=== PATIENT | female | born 1960 | race Caucasian/White ===

== ENCOUNTER → 2016-12-30 | Outpatient (CLI) | payer MEDICAID | LOC: CIMAGING 13:22 | PROVIDERS: ATTEND Internal Medicine Hematology & Oncology | DX: N63.21 Unspecified lump in the left breast, upper outer quadrant (principal) | CPT/HCPCS: 76641-PO; G0204 ==

== ENCOUNTER 2017-01-21 11:27 | Emergency (ER) | payer MEDICAID ==
[2017-01-21 11:41] VITALS: TEMP 97.9
[2017-01-21] MEDS ORDERED: ASPIRIN 81 MG CHEWABLE TAB PO ONE (11:51)
[2017-01-21] MEDS ORDERED: NS 500 ML IV ONE (11:51)
--- NOTE | 2017-01-21 11:51 | CPEKG ---
Heart Rate: 78 RR Interval: 769 P-R Interval: 140 QRSD Interval: 80 QT Interval: 388 QTC Interval: 442 P [place]: 46 QRS [place]: 51 T Wave [place]: 48 EKG Severity - NORMAL ECG - EKG Impression: SINUS RHYTHM Electronically Signed By: Johnny Vo 21-Jan-2017 11:54:36
--- NOTE | 2017-01-21 11:54 | EDPHY ---
H & P Stated Complaint: L arm/jaw pain, SOB on and off 1 week, sent by primary care Time Seen by Provider: 01/21/17 11:45 HPI/ROS: CHIEF COMPLAINT: Left jaw pain HISTORY OF PRESENT ILLNESS: Patient is a 56-year-old female with a history of asthma and remote history of appendiceal cancer who comes to the emergency department complaining of left-sided jaw neck and arm pain for the last week. No change in her shortness of breath. No fevers. No chest pain. No diaphoresis. Mild nausea and vomiting unchanged from baseline. She saw her primary care doctor today who recommended she come to the ER. No lightheadedness or dizziness. No history of cardiac disease. She does state that she has bad anxiety and so it is hard for her to tell what symptoms are real and which ones are her anxiety. REVIEW OF SYSTEMS: Constitutional: denies: chills, fever, recent illness, recent injury EENTM: denies: blurred vision, double vision, nose congestion Respiratory: denies: cough, shortness of breath Cardiac: See HPI denies: chest pain, irregular heart rate, lightheadedness, palpitations Gastrointestinal/Abdominal: denies: abdominal pain, diarrhea, nausea, vomiting, blood streaked stools Genitourinary: denies: dysuria, frequency, hematuria, pain Musculoskeletal: denies: joint pain, muscle pain Skin: denies: lesions, rash, jaundice, bruising Neurological: denies: headache, numbness, paresthesia, tingling, dizziness, weakness Hematologic/Lymphatic: denies: blood clots, easy bleeding, easy bruising Immunologic/allergic: denies: HIV/AIDS, transplant EXAM: GENERAL: Well-appearing, overweight and in no acute distress. HEAD: Atraumatic, normocephalic. EYES: Pupils equal round and reactive to light, extraocular movements intact, sclera anicteric, conjunctiva are normal. ENT: TMs normal, nares patent, oropharynx clear without exudates. Moist mucous membranes. NECK: Normal range of motion, supple without lymphadenopathy or JVD. LUNGS: Breath sounds clear to auscultation bilaterally and equal. No wheezes rales or rhonchi. HEART: Regular rate and rhythm without murmurs, rubs or gallops. ABDOMEN: Soft, nontender, normoactive bowel sounds. No guarding, no rebound. No masses appreciated. BACK: No CVA tenderness, no spinal tenderness, step-offs or deformities EXTREMITIES: Normal range of motion, no pitting or edema. No clubbing or cyanosis. NEUROLOGICAL: Cranial nerves II through XII grossly intact. Normal speech, normal gait. 5/5 strength, normal movement in all extremities, normal sensation PSYCH: Normal mood, normal affect. SKIN: Warm, dry, normal turgor, no visible rashes or lesions. Source: Patient Exam Limitations: No limitations - Personal History Current Tetanus/Diphtheria Vaccine: Unsure Current Tetanus Diphtheria and Acellular Pertussis (TDAP): Unsure Tetanus Vaccine Date: unknown - Medical/Surgical History Hx Asthma: Yes Hx Chronic Respiratory Disease: No Hx Diabetes: No Hx Cardiac Disease: No Hx Renal Disease: No Hx Cirrhosis: No Hx Alcoholism: No Hx HIV/AIDS: No Hx Splenectomy or Spleen Trauma: No Other PMH: 2 c sections hysterectomy asthma, appendiceal cancer, hemicolectomy - Family History Significant Family History: No pertinent family hx - Social History Smoking Status: Never smoked Alcohol Use: Sober Drug Use: None Constitutional: Initial Vital Signs Temperature (C) 36.6 C 01/21/17 11:37 Heart Rate 92 01/21/17 11:37 Respiratory Rate 18 01/21/17 11:37 Blood Pressure 102/80 01/21/17 11:37 O2 Sat (%) 97 01/21/17 11:37 O2 Delivery Mode Room Air O2 (L/minute) 2 Allergies/Adverse Reactions: Penicillins Allergy (Severe, Verified 01/21/17 11:36) Other-Enter Comments adhesive Allergy (Mild, Verified 01/21/17 11:36) Rash latex Allergy (Mild, Verified 01/21/17 11:36) Rash MANGOS Allergy (Uncoded 05/20/14 21:08) Home Medications: Medication Instructions Recorded Advair 500/50 (*) 01/21/17 Albuterol 01/21/17 Claritin 01/21/17 Hydrocodon-Acetaminophen 5-325 01/21/17 Ranitidine HCl 01/21/17 Singulair 01/21/17 Medical Decision Making - Diagnostics EKG Interpretation: An EKG obtained and was read and documented in trace view. Please see trace view for full reading and report. Sinus rhythm, no acute ischemic changes Imaging Results: Imaging Impressions Chest X-Ray 01/21/17 11:52 Impression: Normal chest x-ray. ED Course/Re-evaluation: 1:00 p.m. we discussed the test results which are reassuring. The patient is currently asymptomatic. She would like to go home. We discussed limitations as well as the differential. We discussed follow-up. Discussed indications for returning. Differential Diagnosis: Partial list of the Differential diagnosis considered include but were not limited to; anxiety, acute coronary disease, PE, asthma and although unlikely based on the history and physical exam, I also considered bronchitis, pneumonia , pneumothorax. I discussed these differential diagnoses and the plan with the patient as well as the usual and expected course. The patient understands that the diagnosis is provisional and that in medicine we are not always correct and that further workup is often warranted. Usual and customary warnings were given. All of the patient's questions were answered. The patient was instructed to return to the emergency department should the symptoms at all worsen or return, otherwise to followup with the physician as we discussed. - Data Points Laboratory Results: Laboratory Results 01/21/17 11:52 01/21/17 11:52 01/21/17 01/21/17 01/21/17 Unknown 11:52 11:52 WBC RBC Hgb Hct MCV MCH MCHC RDW Plt Count MPV Neut % (Auto) Lymph % (Auto) Gage % (Auto) Eos % (Auto) Baso % (Auto) Nucleat RBC Rel Count Absolute Neuts (auto) Absolute Lymphs (auto) Absolute Monos (auto) Absolute Eos (auto) Absolute Basos (auto) Absolute Nucleated RBC Immature Gran % Immature Gran # PT 13.1 SEC SEC (12.0-15.0) INR 1.00 (0.83-1.16) APTT 28.4 SEC SEC (23.0-38.0) D-Dimer < 0.27 ug/mLFEU ug/mLFEU (0.00-0.50) Sodium 146 mEq/L H mEq/L (134-144) Potassium 3.9 mEq/L mEq/L (3.5-5.2) Chloride 108 mEq/L mEq/L (97-110) Carbon Dioxide 25 mEq/l mEq/l (22-31) Anion Gap 13 mEq/L mEq/L (8-16) BUN 19 mg/dL mg/dL (7-23) Creatinine 0.8 mg/dL mg/dL (0.6-1.0) Estimated GFR > 60 Glucose 109 mg/dL H mg/dL (70-100) Calcium 9.1 mg/dL mg/dL (8.5-10.4) Troponin I < 0.012 ng/mL ng/mL (0.000-0.034) Beta HCG, Qual NEGATIVE 01/21/17 11:52 WBC 8.47 10^3/uL 10^3/uL (3.80-9.50) RBC 5.10 10^6/uL 10^6/uL (4.18-5.33) Hgb 14.2 g/dL g/dL (12.6-16.3) Hct 43.2 % % (38.0-47.0) MCV 84.7 fL fL (81.5-99.8) MCH 27.8 pg L pg (27.9-34.1) MCHC 32.9 g/dL g/dL (32.4-36.7) RDW 13.9 % % (11.5-15.2) Plt Count 236 10^3/uL 10^3/uL (150-400) MPV 9.1 fL fL (8.7-11.7) Neut % (Auto) 69.8 % % (39.3-74.2) Lymph % (Auto) 21.1 % % (15.0-45.0) Gage % (Auto) 5.3 % % (4.5-13.0) Eos % (Auto) 2.6 % % (0.6-7.6) Baso % (Auto) 0.6 % % (0.3-1.7) Nucleat RBC Rel Count 0.0 % % (0.0-0.2) Absolute Neuts (auto) 5.91 10^3/uL 10^3/uL (1.70-6.50) Absolute Lymphs (auto) 1.79 10^3/uL 10^3/uL (1.00-3.00) Absolute Monos (auto) 0.45 10^3/uL 10^3/uL (0.30-0.80) Absolute Eos (auto) 0.22 10^3/uL 10^3/uL (0.03-0.40) Absolute Basos (auto) 0.05 10^3/uL 10^3/uL (0.02-0.10) Absolute Nucleated RBC 0.00 10^3/uL 10^3/uL (0-0.01) Immature Gran % 0.6 % % (0.0-1.1) Immature Gran # 0.05 10^3/uL 10^3/uL (0.00-0.10) PT INR APTT D-Dimer Sodium Potassium Chloride Carbon Dioxide Anion Gap BUN Creatinine Estimated GFR Glucose Calcium Troponin I Beta HCG, Qual Medications Given: Discontinued Medications Aspirin (Aspirin) 324 mg PO EDNOW ONE Stop: 01/21/17 11:52 Last Admin: 01/21/17 12:15 Dose: 324 mg Sodium Chloride (Ns) 500 mls @ 0 mls/hr IV EDNOW ONE; Wide Open PRN Reason: Protocol Stop: 01/21/17 11:52 Last Admin: 01/21/17 12:14 Dose: 500 mls Departure - Departure Disposition: Home, Routine, Self-Care Clinical Impression: Jaw pain Condition: Fair Instructions: Chest Pain (ED) Referrals: Jimbo Fontana MD [Primary Care Provider] - As per Instructions
[2017-01-21 12:00] VITALS: RESP 16; O2SAT 95
[2017-01-21 12:10] LABS: % IMMATURE GRANULYOCYTES 0.6 % (0.0-1.1); ABSOLUTE IMMATURE GRANULOCYTES 0.05 10^3/uL (0.00-0.10); ADD DIFF? NO; ADD MORPH? NO; ADD SCAN? NO; ATYPICAL LYMPHOCYTE FLAG 0 (0-99); FRAGMENT RBC FLAG 0 (0-99); HEMATOCRIT 43.2 % (38.0-47.0); HEMOGLOBIN 14.2 g/dL (12.6-16.3); LEFT SHIFT FLG 0 (0-99); LIPEMIA HEMOLYSIS FLAG 80 (0-99); MEAN CELL HEMOGLOBIN 27.8 pg (27.9-34.1); MEAN CELL HEMOGLOBIN CONCENTR. 32.9 g/dL (32.4-36.7); MEAN CELL VOLUME 84.7 fL (81.5-99.8); MEAN PLATELET VOLUME 9.1 fL (8.7-11.7); PLATELET CLUMPS FLAG 0 (0-99); PLATELET COUNT 236 10^3/uL (150-400); RED CELL DISTRIBUTION WIDTH 13.9 % (11.5-15.2)
[2017-01-21 12:15] LABS: PROTIME(PATIENT) 13.1 SEC (12.0-15.0)
[2017-01-21 12:16] LABS: APTT 28.4 SEC (23.0-38.0)
[2017-01-21 12:20] LABS: ANION GAP 13 mEq/L (8-16); CALCIUM 9.1 mg/dL (8.5-10.4); CARBON DIOXIDE 25 mEq/l (22-31); CHLORIDE 108 mEq/L (97-110); CREATININE 0.8 mg/dL (0.6-1.0); GLOMERULAR FILTRATION RATE > 60; GLUCOSE 109 mg/dL (70-100); POTASSIUM 3.9 mEq/L (3.5-5.2); SODIUM 146 mEq/L (134-144)
[2017-01-21 12:31] LABS: TROPONIN I < 0.012 ng/mL (0.000-0.034)
[2017-01-21 13:36] VITALS: BP 129/79; PULSE 72
== END 2017-01-21 13:44 | disposition home or self-care (01) ==
DX: R68.84 Jaw pain (principal); J45.909 Unspecified asthma, uncomplicated; E86.9 Volume depletion, unspecified; Z85.038 Personal history of other malignant neoplasm of large intestine; Z91.040 Latex allergy status

== ENCOUNTER 2017-06-07 12:14 | Emergency (ER) | payer MEDICAID ==
[2017-06-07 12:38] VITALS: PULSE 77; RESP 18; TEMP 98.6
--- NOTE | 2017-06-07 13:16 | EDPHY ---
H & P Stated Complaint: R knee pain--walking heard pop Time Seen by Provider: 06/07/17 13:16 HPI/ROS: HPI: This is a 57-year-old female who presents with Chief Complaint: R knee pain--walking heard pop Location: Right knee Quality: Pain Duration: Today Signs and Symptoms: No bleeding, no radiation, no numbness, no weakness, no tingling, no incontinence, + decreased range of motion, no swelling, + pain, no fever Timing: Acute Severity: 09/22 Context: Patient reports that approximately 1 month ago she was walking on some phone with her grandson when she lost her balance and twisted her knee causing it to become sprain. She went to her primary care provider after a week and had an x-ray that was unremarkable per patient. She was then referred to physical therapy. Her firs appointment is for this Thursday. She reports this morning she was caring a light laundry basket down the stairs when she felt popping sensation in the medial aspect of her knee followed by constant, moderate, nonradiating pain. She is using her mother's cane to aid ambulation. She is ambulatory. She has Vicodin at home but only 3 pills left. She took a Vicodin prior to arrival with moderate relief of pain. Denies LOC/head injury/ neck pain/dizziness/nausea/vomiting/amnesia. She denies any calf swelling/ weakness/paresthesias/skin color changes. Modifying Factors: See above Comment: ROS: see HPI Constitutional: No fever, no chills, no weight loss Eyes: No blurred vision Respiratory: No shortness of breath, no cough Cardiovascular: No chest pain Gastrointestinal: No nausea, no vomiting no diarrhea Genitourinary: No dysuria Extremities: No myalgias Neurologic: No weakness, no numbness Skin: No rashes Hematologic: No bruising, no bleeding MEDICAL/SURGICAL/SOCIAL HISTORY: Medical/Surgical history: 2 c sections hysterectomy asthma, appendiceal cancer , hemicolectomy, R knee issues Social history: Strong family support CONSTITUTIONAL: Polite and cooperative well-appearing adult middle-aged female , awake and alert, no obvious distress HEENT: Atraumatic and normocephalic, PERRL, EOMI. Tympanic membranes clear. Oropharynx clear, no exudate and moist pink mucosa. Airway patent. No lymphadenopathy. No meningismus. Cardiovascular: Normal S1/S2, regular rate, regular rhythm, without murmur rub or gallop. PULMONARY/CHEST: Symmetrical and nontender. Clear to auscultation bilaterally. Good air movement. No accessory muscle usage. ABDOMEN: Soft, nondistended, nontender, no rebound, no guarding, no peritoneal signs, no masses or organomegaly. No CVAT. EXTREMITIES: 2/2 pulses, strength 5/5, right KNEE: Mild suprapatellar effusion , moderate medial joint line tenderness, no lateral joint line tenderness, full extension to 180, flexion to 120. Moderate pain valgus exam and no pain with varus exam. Mild laxity/pain with posterior drawer test. No pain with anterior drawer test. no deformities, no clubbing, no cyanosis or edema. No palpable cord. Negative Homans sign. NEUROLOGICAL: no focal neuro deficits. GCS 15. SKIN: Warm and dry, no erythema. no rash. Good capillary refill. Source: Patient Exam Limitations: No limitations - Personal History Tetanus Vaccine Date: unknown - Medical/Surgical History Hx Asthma: Yes Hx Chronic Respiratory Disease: No Hx Diabetes: No Hx Cardiac Disease: No Hx Renal Disease: No Hx Cirrhosis: No Hx Alcoholism: No Hx HIV/AIDS: No Hx Splenectomy or Spleen Trauma: No Other PMH: 2 c sections hysterectomy asthma, appendiceal cancer, hemicolectomy, R knee issues - Social History Smoking Status: Never smoked Constitutional: Initial Vital Signs Temperature (C) 37.0 C 06/07/17 12:36 Heart Rate 77 06/07/17 12:36 Respiratory Rate 18 06/07/17 12:36 Blood Pressure 155/90 H 06/07/17 12:36 O2 Sat (%) 97 06/07/17 12:36 O2 Delivery Mode Room Air Allergies/Adverse Reactions: Penicillins Allergy (Severe, Verified 01/21/17 11:36) Other-Enter Comments adhesive Allergy (Mild, Verified 01/21/17 11:36) Rash latex Allergy (Mild, Verified 01/21/17 11:36) Rash tamsulosin Allergy (Verified 06/07/17 12:36) MANGOS Allergy (Uncoded 05/20/14 21:08) Home Medications: Medication Instructions Recorded Advair 500/50 (*) 01/21/17 Albuterol 01/21/17 Claritin 01/21/17 Hydrocodon-Acetaminophen 5-325 01/21/17 Ranitidine HCl 01/21/17 Singulair 01/21/17 oxyCODONE/APAP 325 [Percocet 1 - 2 tab PO Q4H PRN #10 tab 06/07/17 5/325 (*)] Medical Decision Making - Diagnostics Imaging Results: Imaging Impressions Knee X-Ray 06/07/17 12:55 Impression: 1. Small effusion. No acute fracture. 2. Minimal osteoarthritis. ED Course/Re-evaluation: X-ray my read shows mild degenerative changes, mild effusion No signs of neurovascular compromise/tenting of skin/compartment syndrome/ extremities and joints examined above and below area of concern and are neurovascularly intact. Suspect MCL internal derangement Patient has a knee immobilizer of her own already; crutches provided, start with toe-touch weight-bearing status, rice therapy Advised Ortho follow-up; will likely need MRI of her knee This patient was seen under the supervision of my secondary supervising physician. I evaluated care for this patient independently. Discussed this patient with Dr. Taylor who did not see the patient. Differential Diagnosis: Knee injury while [] including but not limited to fracture, ACL injury, contusion, muscular strain, and meniscus injury. Departure - Departure Disposition: Home, Routine, Self-Care Clinical Impression: Internal derangement of right knee Right knee sprain Qualifiers: Encounter type: initial encounter Involved ligament of knee: medial collateral ligament Qualified Code(s): S83.411A - Sprain of medial collateral ligament of right knee, initial encounter Condition: Good Instructions: Knee Sprain (ED), Knee Immobilizer (ED) Additional Instructions: Wear the knee immobilizer while out of bed. Use crutches to aid ambulation. Start with toe-touch weight-bearing status. Do not start physical therapy until seen by Orthopedics. Take Tylenol 650 mg every 4 hours and/or Ibuprofen 600 mg every 8 hours with food as needed for pain. Use Percocet every 6 hours as needed for severe/break through pain. Do not use Tylenol and Percocet concomitantly. Apply ice for 30 minutes at a time; 2-3 times per day for the next 1-2 days. Follow up with Orthopedics in 5-7 days at which time they will evaluate and recommend with you if conservative management versus MRI of the knee is indicated. Return to the ER immediately if you experience new or worsening pain, discoloration, numbness, tingling, or any other symptoms that concern you. Referrals: Kuldeep Mcgarry MD [Medical Doctor] - As per Instructions Prescriptions: oxyCODONE/APAP 5/325 [Percocet 5/325 (*)] 1 - 2 tab PO Q4H PRN #10 tab PRN Reason: Pain, Severe
[2017-06-07 14:30] VITALS: BP 146/78; O2SAT 94
== END 2017-06-07 14:30 | disposition home or self-care (01) ==
DX: S83.411A Sprain of medial collateral ligament of right knee, initial encounter (principal); J45.909 Unspecified asthma, uncomplicated; Z91.040 Latex allergy status; X50.9XXA Other and unspecified overexertion or strenuous movements or postures, initial encounter; Y99.8 Other external cause status; Y93.01 Activity, walking, marching and hiking

== ENCOUNTER → 2017-06-21 | Outpatient (CLI) | payer MEDICAID | LOC: FIMAGING 07:54 | PROVIDERS: ATTEND Physician Assistant | DX: M23.221 Derangement of posterior horn of medial meniscus due to old tear or injury, right knee (principal); M22.41 Chondromalacia patellae, right knee; M89.8X5 Other specified disorders of bone, thigh ==

== ENCOUNTER 2018-01-31 21:22 | Emergency (ER) | payer MEDICAID ==
--- NOTE | 2018-01-31 22:52 | EDPHY ---
H & P Time Seen by Provider: 01/31/18 21:35 HPI/ROS: Chief complaint: Left hand and wrist pain History of present illness: This is a 57-year-old female who presents to the emergency department for left hand and wrist pain. She states approximately 2 months ago she injured it lifting a heavy bag. It appeared to be getting better but over the weekend she picked up a heavy bottle and seemed to exacerbate the pain again. It is most noticeable when she extends her wrists or moves her thumb. She denies other direct trauma. She denies abnormal coolness or paresthesias in the hand or arm. Smoking Status: Never smoked Physical Exam: General: Alert, nontoxic. Skin: No abnormal lesions to the left upper extremity. Musculoskeletal: Discomfort extending the thumb and wrist, however, she has good range of motion with extension. Trigger finger on left pointer finger noted, this is known and old according to patient. Patient reports all other joints in all other digits in all gomez moving well. She is moving the wrist in all other gomez well. Vascular: Radial pulses 2+. Capillary refill brisk in the left hand. Neurologic: Sensation intact in left hand and arm Constitutional: Initial Vital Signs Heart Rate 85 01/31/18 21:26 Respiratory Rate 16 01/31/18 21:26 Blood Pressure 138/78 H 01/31/18 21:26 O2 Sat (%) 96 01/31/18 21:26 O2 Delivery Mode Room Air Allergies/Adverse Reactions: Penicillins Allergy (Severe, Verified 01/31/18 21:31) Other-Enter Comments adhesive Allergy (Mild, Verified 01/31/18 21:31) Rash latex Allergy (Mild, Verified 01/31/18 21:31) Rash tamsulosin Allergy (Verified 01/31/18 21:31) MANGOS Allergy (Uncoded 05/20/14 21:08) Home Medications: Medication Instructions Recorded Albuterol 01/21/17 Claritin 01/21/17 Hydrocodon-Acetaminophen 5-325 01/21/17 Ranitidine HCl 01/21/17 Singulair 01/21/17 MDM/Departure - [facility] Imaging Results: Imaging Impressions Hand X-Ray 01/31/18 21:38 Impression: Negative for fracture. Mild degenerative changes are noted. 3 Views Left Hand: Clinical Indications: Left thumb and wrist pain. Findings: A fracture is not identified. The bone alignment is normal. Minimal degenerative changes are seen involving the distal pole of the navicula as well as at the base of the first metacarpal. Degenerative changes are also seen involving the interphalangeal joints of the digits. Impression: Negative for fracture. Degenerative changes are noted. Wrist X-Ray 01/31/18 21:38 Impression: Negative for fracture. Mild degenerative changes are noted. 3 Views Left Hand: Clinical Indications: Left thumb and wrist pain. Findings: A fracture is not identified. The bone alignment is normal. Minimal degenerative changes are seen involving the distal pole of the navicula as well as at the base of the first metacarpal. Degenerative changes are also seen involving the interphalangeal joints of the digits. Impression: Negative for fracture. Degenerative changes are noted. Imaging: I viewed and interpreted images myself Procedures: Procedure: Splint placement. A Velcro thumb spica splint was applied. After application of the splint I returned and re-examined the patient. The splint was adequately immobilizing the joint and distal to the splint the patient's circulation and sensation was intact. ED Course/Re-evaluation: Patient seen under the supervision of my secondary supervising physician Dr. Marshall Flynn. Patient presents for left hand and wrist injury. The hand is neurovascularly intact. X-rays are negative. Patient is splinted. Referred to Orthopedics. Return precautions given. Differential Diagnosis: Included but not limited to contusion, sprain or strain, fracture - Depart Disposition: Home, Routine, Self-Care Clinical Impression: Wrist injury Qualifiers: Encounter type: initial encounter Laterality: left Qualified Code(s): S69.92XA - Unspecified injury of left wrist, hand and finger(s), initial encounter Condition: Good Instructions: Wrist Injury (ED) Additional Instructions: Follow-up with a hand doctor for recheck Use [id number] ibuprofen as directed as needed for pain Wear the splint as much as possible If symptoms worsen or new symptoms develop return to the emergency room for recheck Referrals: Jimbo Fontana MD [Primary Care Provider] - As per Instructions Griffin Asher MD [Medical Doctor] - As per Instructions
[2018-01-31 23:21] VITALS: BP 112/76
== END 2018-01-31 23:20 | disposition home or self-care (01) ==
DX: M79.642 Pain in left hand (principal); M25.532 Pain in left wrist; X50.0XXA Overexertion from strenuous movement or load, initial encounter
CPT/HCPCS: L3807

== ENCOUNTER 2018-03-01 19:44 | Emergency (ER) | payer MEDICAID ==
[2018-03-01 20:01] VITALS: BP 147/86
--- NOTE | 2018-03-01 20:27 | EDPHY ---
H & P Smoking Status: Never smoked Time Seen by Provider: 03/01/18 20:07 HPI/ROS: CHIEF COMPLAINT: " I think my cyst is infected" HISTORY OF PRESENT ILLNESS: 57-year-old female history of thoracic sebaceous cyst complaining of increasing pain erythema for the past 5 days. No fever no chills. No nausea no vomiting. No drainage. No chest pain. No flu-like symptoms. PRIMARY CARE PROVIDER: REVIEW OF SYSTEMS: 10 systems reviewed and are negative with exception of illness mentioned in the history of present illness PHYSICAL EXAM (Prior to examination, patient consented to physical exam, hands were washed and my usual and customary physical exam procedures followed) 1) GENERAL: Well-developed, well-nourished, alert and oriented. Appears to be in no acute distress. 2) HEAD: Normocephalic 3) HEENT: sclera anicteric 4) LUNGS: Breathing comfortably. 5) SKIN: In the upper thoracic region, general midline location patient has a fluctuant erythematous lesion which is nondraining. (Bry Tang) Constitutional: Initial Vital Signs Temperature (C) 36.7 C 03/01/18 19:57 Heart Rate 87 03/01/18 19:57 Respiratory Rate 16 03/01/18 19:57 Blood Pressure 147/86 H 03/01/18 19:57 O2 Sat (%) 97 03/01/18 19:57 O2 Delivery Mode Room Air Allergies/Adverse Reactions: Penicillins Allergy (Severe, Verified 01/31/18 21:31) Other-Enter Comments adhesive Allergy (Mild, Verified 01/31/18 21:31) Rash latex Allergy (Mild, Verified 01/31/18 21:31) Rash tamsulosin Allergy (Verified 01/31/18 21:31) MANGOS Allergy (Uncoded 05/20/14 21:08) Home Medications: Medication Instructions Recorded Albuterol 01/21/17 Claritin 01/21/17 Hydrocodon-Acetaminophen 5-325 01/21/17 Ranitidine HCl 01/21/17 Singulair 01/21/17 Cephalexin [Keflex] 500 mg PO TID 7 Days cap 03/01/18 MDM/Departure - MDM Procedures: Procedure: Drainage of infected sebaceous cyst. I obtained verbal consent from the patient to drain the abscess who was informed about the possibility of bleeding and pain. The area was prepped draped normal sterile fashion, was incised with a scalpel and a moderate amount of foul-smelling sebum was expressed. I irrigated the wound and placed some packing. The patient tolerated the procedure well. The procedure was performed by myself. (Bry Tang) ED Course/Re-evaluation: Patient has evidence of infected sebaceous cyst in the thoracic region of her back. This has been incised injury in the ER. Will be allowed to heal via secondary intention. Started on prophylactic antibiotics. Recommend follow up with primary care provider. Given my usual customary wound precautions and instructions .. She feels comfortable being discharged. Care of patient under supervision of secondary supervising physician Dr Ramin Torres. (Bry Tang) I did not see this patient while she was in the emergency department. However her care was discussed with the PA while the patient was in the department. I agree with treatment plan and management (Ramin Torres) - Depart Disposition: Home, Routine, Self-Care Clinical Impression: Infected sebaceous cyst of skin Condition: Good Instructions: Cyst (ED) Additional Instructions: Return to the ER if you develop redness, swelling, discharge, warmth to the wound,, or any other symptoms that concern you. Prescriptions: Cephalexin [Keflex] 500 mg PO TID 7 Days cap Referrals: Jimbo Fontana MD [Primary Care Provider] - 2-3 days, call for appt.
== END 2018-03-01 20:32 | disposition home or self-care (01) ==
PROC: 0H96XZZ Drainage of Back Skin, External Approach (ICD-10-PCS; principal; 2018-03-01)
DX: L72.3 Sebaceous cyst (principal)